=== PATIENT | male | born 2000 | race African-American/Black ===

== ENCOUNTER 2025-03-01 00:09 | Emergency (ER) | payer OTHER ==
[~2025-03-01] VITALS: Ht 177.8 cm; Wt 83.5 kg
[2025-03-01 00:19] VITALS: O2SAT 100
[2025-03-01 01:14] VITALS: PULSE 62; RESP 16; TEMP 36.8; O2SAT 99
[2025-03-01] MEDS: LIDOCAINE HCL/PF 1% 10 MG/ML 5ML VIAL INFIL ONE (02:15)
[2025-03-01] MEDS: BACITRACIN ZINC OINT UDPKT TOP ONE (03:30)
[2025-03-01] MEDS: TETANUS, DIPHTHERIA, PERTUSSIS VAC/PF 0.5ML (>10YR OLD) IM ONE (03:31)
== END 2025-03-01 04:30 | disposition home or self-care (01) ==
LOC: ER 00:58
DX: S61.213A Laceration without foreign body of left middle finger without damage to nail, initial encounter (principal); W25.XXXA Contact with sharp glass, initial encounter; X58.XXXA Exposure to other specified factors, initial encounter; Y93.89 Activity, other specified; Y92.89 Other specified places as the place of occurrence of the external cause; Y99.8 Other external cause status
CPT/HCPCS: 73130; 90715; 12002; 90471; 99283; J2003; Z7610

== ENCOUNTER 2025-03-12 16:14 | Emergency (ER) | payer OTHER ==
[~2025-03-12] VITALS: Ht 177.8 cm; Wt 83.0 kg
[2025-03-12 16:26] VITALS: TEMP 36.6; O2SAT 99
[2025-03-12] MEDS ORDERED: BO1 TP (16:40)
[2025-03-12 16:52] VITALS: BP 109/70; PULSE 68; RESP 16; O2SAT 100
== END 2025-03-12 16:59 | disposition home or self-care (01) ==
LOC: ER 16:14
DX: S61.219D Laceration without foreign body of unspecified finger without damage to nail, subsequent encounter (principal); X58.XXXD Exposure to other specified factors, subsequent encounter
CPT/HCPCS: 99282